=== PATIENT | male | born 1995 | race Caucasian/White ===

== ENCOUNTER 2024-03-07 10:14 | Emergency (ER) | payer BC, SELFPAY ==
[2024-03-07 10:28] VITALS: BP 127/90
[2024-03-07 10:54] VITALS: BMI 23.6
[2024-03-07] MEDS: FLEXERIL 10 MG PO (11:21)
[2024-03-07] MEDS: TYLENOL 1000 MG PO (11:21)
[2024-03-07] MEDS: LIDOCAINE 4% PATCH 1 PATCH TOPICAL (11:22)
[2024-03-07] MEDS: TORADOL 30 MG IM (11:22)
--- NOTE | 2024-03-07 11:35 | ED.GENMED ---
History of Present Illness
General
Chief Complaint: Back Pain
Time Seen by Provider: 03/07/24 10:48
Travel History
Have you had any contact with someone who has COVID-19?: No
Do you have any symptoms of coronavirus? Fever > 100 degrees, chills, cough, shortness of breath, sore throat, loss of taste or smell, muscle aches, or headache?: No
History of Present Illness
History of Present Illness:
28-year-old male presents to the emergency department for evaluation of low back pain. He states he tripped and fell walking out of bed today, fell forward. Having intense pain across bilateral aspects of the lower back. No lower extremity
radiating symptoms or paresthesias. Denies any loss of bladder or bowel function. Took no medication for pain control before coming to the ER
Past History
Past History
ED Past Medical History: Psychiatric (Anxiety) and Other (Autism)
ED Past Surgical History: None
Social History
Tobacco: Non-smoker
Alcohol: None
Drug: Marijuana
Personal: Single
Living: with family
Employment: Employed
Family History
Family History: Other (Noncontributory); Negative Early CAD or Sudden
Review of Systems
Review of Systems
Allergies reviewed?: Yes
All Other Systems: ROS reviewed and negative except as documented in HPI and ROS
Phy Exam
Physical Exam
Physical Exam:
GEN: Well appearing, NAD, WDWN
HEENT: Oral mucosa moist, no scleral icterus
Cardiac: Regular rate
Lung: No respiratory distress, no tachypnea
MSK: No gross deformity or injuries. No reproducible lumbar spine or paraspinous muscle tenderness. Straight leg raise test negative bilaterally
Skin: Good color, no pallor or jaundice, no rashes
Neuro: AO x3, moves all extremities freely
Psych: Calm, cooperative
Course
Orders/Labs/Results
Orders:
Orders
03/07/24 11:07
Acetaminophen [Tylenol] 1,000 mg PO NOW STA
Cyclobenzaprine HCl [Flexeril] 10 mg PO NOW STA
Ketorolac [Toradol] 30 mg IM NOW STA
Lidocaine [Lidocaine 4% Patch] 1 patch TOPICAL NOW STA
Vital Signs
Initial and Last Documented VS:
Initial Vital Signs
Temp Pulse Resp BP Pulse Ox
98.3 F 92 20 127/90 98
03/07/24 10:28 03/07/24 10:28 03/07/24 10:28 03/07/24 10:28 03/07/24 10:28
Last Documented Vital Signs
Temp Pulse Resp BP Pulse Ox
98.3 F 76 14 120/67 99
03/07/24 10:28 03/07/24 12:52 03/07/24 12:52 03/07/24 12:52 03/07/24 12:52
MDM/Problems Addressed
MDM/Problems Addressed:
Patient's nature of trauma was not significant, and given lack of midline bony tenderness, do not feel there is indication for imaging. Likely MSK etiology, doubt discogenic given lack of radiculopathy. Discussed supportive care
*Critical Care Note
Total Time (30-74mins, 75-104mins- exclusive of procedures): Not Applicable
ED Attending Note
-
Portions of this chart may have been created with voice recognition software.� Occasional wrong word or��sound alike� substitutions may have occurred due to the inherent limitations of voice recognition software.
Discharge Plan
Departure
Patient Disposition: Home (Routine Discharge)
Date of Disposition: 03/07/24
Time of Disposition: 12:25
Patient with high blood pressure during this ER visit?: No
Discharge Problem:
Acute lumbar myofascial strain
Instructions: Low Back Pain (DC)
Prescriptions:
New
methocarbamol 750 mg tablet
750 - 1,500 mg PO HS PRN (Reason: muscle spasm) Qty: 20 0RF
diclofenac sodium 75 mg tablet,delayed release (DR/EC)
75 mg PO BID PRN (Reason: Pain) Qty: 20 0RF
Referrals:
NONE,* [Family Provider] -
Interventions
Interventions:
*Risk Screen - Suicide Last Done: 03/07/24 10:28
*General Assessment Last Done: 03/07/24 10:28
*Neglect/Abuse Screening Last Done: 03/07/24 10:28
ED- Fall Risk Assessment Last Done: 03/07/24 10:54
*ED COVID-19 Vaccine History Last Done: 03/07/24 10:54
*Nursing Disposition Last Done: 03/07/24 12:52
ED-Musculoskeletal Assessment Last Done: 03/07/24 10:54
Discharge Date and Time
Discharge Date/Time: 03/07/24 12:45
Print Language: SAMI
--- NOTE | 2024-03-07 12:51 | EDRN ---
REviewed discharge instructions with patient. Verbalized understanding. Ambulated with steady gait to the lobby.
[2024-03-07 12:52] VITALS: BP 120/67
== END 2024-03-07 12:45 | disposition home or self-care (01) ==
LOC: EMR 10:14
PROVIDERS: EMERGENCY PHYSICIAN Emergency Medicine
DX: S39.012A Strain of muscle, fascia and tendon of lower back, initial encounter (principal); W01.0XXA Fall on same level from slipping, tripping and stumbling without subsequent striking against object, initial encounter
CPT/HCPCS: 99284; 96372

== ENCOUNTER → 2024-12-14 06:39 | Outpatient (REF) | payer BC, SELFPAY | LOC: PAVMRI 06:39 | PROVIDERS: ATTENDING PHYSICIAN Anesthesiology Pain Medicine; FAMILY PHYSICIAN Physician Assistant | DX: M54.16 Radiculopathy, lumbar region (principal) | CPT/HCPCS: 72148 ==

== ENCOUNTER 2025-04-07 13:17 | Emergency (ER) | payer BC, SELFPAY ==
--- NOTE | 2025-04-07 13:50 | EDRN ---
Pt arrived by himself to triage c/o severe chest pain after a fall, abrasions noted to L shoulder. Pt taken immediately back for ECG. While in ECG, mom presented to Triage. checking clerk informed mother pt was in the back for Triage and an ECG.
Mom then proceeded to yell at registration. This RN heard the yelling and stepped into the lobby. Mom yelled at this RN that 'he does not need an ECG'. Explained to mom it was hospital protocol to do an ECG on patient presenting with severe chest
pain. Mom once again yelled at this RN 'He does not need an ECG, he cannot afford it'. I explained to mom that we do what is in the best interest of patient care. Mom continued to yell escalate, this RN asked mom to step outside. Security aware.
--- NOTE | 2025-04-07 14:36 | ED.MUSCINJ ---
HPI-Injury
General
Chief Complaint: Fall
Source: patient
Exam Limitations: none
Time Seen by Provider: 04/07/25 14:27
History of Present Illness-Injury
Initial Injury comments:
30-year-old male presents complaining of center chest pain that hurts to breathe. He fell throughout the night. He states he fell in his bathroom and may have hit the sink. Pain is in the center of his chest hurts to move. He denies shortness of
breath. Pain does not radiate to the back. No neck or back pain. No headache. No other complaints at this time.
Past History
Past History
ED Past Medical History: Psychiatric (Anxiety) and Other (Autism)
ED Past Surgical History: None
Social History
Tobacco: Non-smoker
Alcohol: None
Drug: Marijuana
Personal: Single
Living: with family
Employment: Employed
Family History
Family History: Other (Noncontributory); Negative Early CAD or Sudden
Phy Exam
Physical Exam
Physical Exam:
General: Well-appearing male no acute respiratory distress
HEENT: Normocephalic atraumatic heart: Regular rate and rhythm no murmurs
Lungs: Clear no wheeze
Musculoskeletal exam: Patient is tender over the midline of the chest without step-off or deformity. No subcutaneous emphysema
The spine is nontender
Injury Course
Orders/Labs/Results
Orders:
Orders
04/07/25 13:19
Electrocardiogram (*1) Urgent
Reason for Study: Chest Pain
EKG- Treatment ONCE
04/07/25 14:36
CR Chest - 2 Views Urgent
Comment:
Reason For Exam: chest pain
04/07/25 13:19
04/07/25 13:19
MDM/Problems Addressed
Differential Diagnosis Includes:
Fall with anterior chest pain. Consider contusion versus fracture versus pneumothorax. X-rays pending
*Critical Care Note
Total Time (30-74mins, 75-104mins- exclusive of procedures): Not Applicable
Update Note
Update Note:
Chest x-ray negative. Patient reassured. He is certain his pain started after a fall. There is no pneumothorax or fracture. Suspect chest wall contusion or strain. Recommend ibuprofen or Tylenol for pain. Stable for discharge
ED Attending Note
-
Portions of this chart may have been created with voice recognition software.� Occasional wrong word or��sound alike� substitutions may have occurred due to the inherent limitations of voice recognition software.
Discharge Plan
Departure
Patient Disposition: Home (Routine Discharge)
Date of Disposition: 04/07/25
Time of Disposition: :
Patient with high blood pressure during this ER visit?: No
Discharge Problem:
Strain of chest wall
Instructions: Contusion (DC)
Prescriptions:
No Action
methocarbamol 750 mg tablet
750 - 1,500 mg PO HS PRN (Reason: muscle spasm) Qty: 20 0RF
diclofenac sodium 75 mg tablet,delayed release (DR/EC)
75 mg PO BID PRN (Reason: Pain) Qty: 20 0RF
Referrals:
Juvencio Moreland PA [Family Provider] -
Activity Restrictions/Additional Instructions:
Use ibuprofen or Tylenol for pain. Return here if worse otherwise follow-up with your doctor
Interventions
Interventions:
*Risk Screen - Suicide Last Done: 04/07/25 13:29
*General Assessment Last Done: 04/07/25 14:28
*Neglect/Abuse Screening Last Done: 04/07/25 14:28
*ED COVID-19 Vaccine History Last Done: 04/07/25 14:28
ED-Musculoskeletal Assessment Last Done: 04/07/25 14:28
ED- Neurological Assessment Last Done: 04/07/25 14:28
ED-Skin Assessment Last Done: 05/17/25 14:28
Discharge Date and Time
Print Language: NAURUAN
[2025-04-07 15:04] VITALS: BP 127/71
== END 2025-04-07 17:41 | disposition home or self-care (01) ==
LOC: EMR 13:17
PROVIDERS: EMERGENCY PHYSICIAN Student in an Organized Health Care Education/Training Program; FAMILY PHYSICIAN Physician Assistant
DX: S29.011A Strain of muscle and tendon of front wall of thorax, initial encounter (principal); W19.XXXA Unspecified fall, initial encounter
CPT/HCPCS: 99284; 71046; 93005

== ENCOUNTER 2025-05-22 04:19 | Emergency (ER) | payer BC, SELFPAY ==
[2025-05-22] VITALS (8 sets, daily range): BP systolic 97–116; BP diastolic 51–80; BMI 21.8
[2025-05-22 04:30] LABS: Glucose - Point of Care 137 mg/dl (70-99)
[2025-05-22 04:43] LABS: Hematocrit 45.6 % (39.0-52.0); Hemoglobin 15.7 g/dL (13.0-18.0); Mean Corp Hgb Conc. 34.4 g/dL (33.0-37.0); Mean Corpuscular Volume 89.8 fL (80.0-94.0); Nucleated Red Blood Cells % 0 % (-); Platelet Count 215 10^3/uL (130-400); Red Cell Dist. Width 12.9 % (11.5-14.5)
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
[2025-05-22 05:20] LABS: AST (SGOT) 21 U/L (17-59); Albumin 4.2 g/dl (3.5-5.0); Alkaline Phosphatase 32 U/L (38-126); Blood Urea Nitrogen 9 mg/dl (9-20); Calcium 8.7 mg/dl (8.4-10.2); Carbon Dioxide 13 mmol/L (22-30); Chloride 114 mmol/L (98-107); Estimated Creatinine Clearance > 125 ml/min; Glucose 124 mg/dl (70-99); Potassium 4.0 mmol/L (3.5-5.1); Sodium 144 mmol/L (135-145); Total Protein 6.4 g/dl (6.3-8.2); eGFR > 60.00
[2025-05-22 05:30] LABS: ALT (SGPT) < 30 U/L (0-50)
[2025-05-22] MEDS: KEPPRA 1000 MG IV (05:58)
[2025-05-22] MEDS: NSS 1000 IV (05:59)
--- NOTE | 2025-05-22 07:58 | EDRN ---
Reviewed discharge instructions with patient and his mother. Verbalized understanding. Ambulated with steady gait to the [facility].
== END 2025-05-22 07:55 | disposition home or self-care (01) ==
LOC: EMR 04:19
PROVIDERS: EMERGENCY PHYSICIAN Emergency Medicine; FAMILY PHYSICIAN Physician Assistant
DX: G40.909 Epilepsy, unspecified, not intractable, without status epilepticus (principal); F84.0 Autistic disorder
CPT/HCPCS: 99284; 96374; 96361; 70450; 80053; 82962; 85025